=== PATIENT | female | born 1955 | race Caucasian/White ===

== ENCOUNTER → 2019-06-15 | Day surgery (SDC) | payer OTHER ==
[~2019-06-15] MED LIST: CALCIUM 600 +1 EAC8 PO; MAGNESIUM400 M1 PO; PERCOCET 5-3251 EACH PO; RISEDRONATE SO150 MG PO
--- NOTE | ~2019-06-15 | OP ---
[address] [address] OPERATIVE REPORT Name: VEL CELESTIN Room: [facility]#: [id number] Admission: 06/15/19 Attend Phys: Frederick Arteaga II Discharge: Date of : 59 Report #: [id number] THIS REPORT FOR: //name// cc: Sara Rendon Stephanie P. DO ~ THIS REPORT FOR: //name// CC: Frederick Rendon DATE OF SERVICE: 06/15/2019 PREOPERATIVE DIAGNOSIS: Left shoulder rotator cuff tear. POSTOPERATIVE DIAGNOSES: 1. Left shoulder rotator cuff tear. 2. Labral tears. 3. Subacromial impingement. PROCEDURES PERFORMED: 1. Left shoulder arthroscopic surgery with rotator cuff repair. 2. Left shoulder extensive debridement of labral tears. 3. Subacromial decompression. SURGEON: Frederick Arteaga II, DO EXTERIOR INTERIOR SPECIALIST: JOHN Peterson ANESTHESIA: Per operative record. ESTIMATED BLOOD LOSS: Minimal. ANTIBIOTICS: Per operative record. DRAINS: None. COMPLICATIONS: None. CONDITION OF THE PATIENT: Stable to recovery room. DESCRIPTION OF PROCEDURE: The patient was taken to the operative suite and placed supine on the operating table, given appropriate anesthesia. The patient's affected shoulder was sterilely prepped and draped in a modified beach chair position and all bony prominences well padded. Surgery began by posterior portal incision. The arthroscope was advanced in the joint. There was shown to be intact biceps tendon with only minor fraying. There [place] [address] OPERATIVE REPORT Name: VEL CELESTIN Room: [facility].#: [id number] Admission: 06/15/19 Attend Phys: Frederick Arteaga II Discharge: Date of : 59 Report #: [id number] and cartilage debris as well as labral tears to the glenohumeral joint. Establishing an anterior portal with geronimo introduced, an extensive debridement was performed on the superior, inferior as well as anterior and posterior portions of the glenohumeral joint and labrum, removing excess tears, bone and cartilage debris with an extensive debridement being performed. The arthroscope was advanced in the subacromial space, and a subacromial decompression and partial acromioplasty was performed due to significant impingement. The lateral clavicle did not have significant osteoarthritis and was left intact. There was shown to be rotator cuff tear noted to the lateral margin of the supraspinatus measuring approximately 1.5 cm. Establishing a lateral portal, the lateral rotator cuff tear was debrided down to fresh tissue on its free edge. A bone bed was then repaired along the lateral humerus down to bleeding bone. One suture tape was then placed in the proximal aspect of the tear, was then anchored to the lateral humerus in appropriate fashion. This was then overlaid with a medium arthroscopic bioinductive implant with SHAMA tendon anchor secured medially and PEEK bone anchor secured laterally to repair the rotator cuff. This was probed and shown to be intact with excellent repair of rotator cuff and full range of motion of the shoulder without evidence of re-tear. Final images were taken. The shoulder was drained of arthroscopic fluid, closed with 4-0 nylon in simple fashion. Dermabond and sterile dressing applied. Sling was applied. The patient transported to recovery room in stable condition. Counts were correct throughout the procedure. By: [id number] Arteaga II, DO /nt
[2019-06-15 07:06] LABS: HEMATOCRIT 39.8 % (37.0-47.0); HEMOGLOBIN 13.5 gm/dL (12.0-15.0); MCH 31.2 pg (26.0-34.0); MCHC 33.9 g/dL (28.0-37.0); MCV 92.1 fL (80.0-100.0); MPV 10.5 fl. (7.2-11.1); RBC 4.32 mil/uL (4.20-5.00); RDW-CV 13.9 % (10.5-14.5); WBC 7.2 thou/uL (4.0-11.0)
[2019-06-15 07:15] LABS: CALCIUM 8.8 mg/dL (8.5-10.1); POTASSIUM 4.3 mmol/L (3.5-5.1)
[2019-06-15 07:20] LABS: ALBUMIN 3.6 g/dL (3.4-5.0); TOTAL BILIRUBIN 0.4 mg/dL (<0.1-1.0); TOTAL PROTEIN 7.4 g/dL (6.4-8.2)
--- NOTE | 2019-06-15 11:48 | EKG ---
[place] [address] ELECTROCARDIOGRAM REPORT Name: VEL CELESTIN Room: [facility]#: [id number] Admission: 06/15/19 Attend Phys: Frederick Arteaga II Discharge: Date of : 59 Report #: [id number] THIS REPORT FOR: //name// [facility] Test Date: 2019-06-15 Test Time: 08:04:11 Pat Name: VEL CELESTIN Department: Room: Gender: F Customer Field Representative: : 1955 Requested By: Frederick Arteaga Order Number: [id number] Chris MD: Marco Hernandez Measurements Intervals [place] Rate: 59 P: 26 MT: 153 QRS: 37 QRSD: 82 T: 22 QT: 410 QTc: 407 Interpretive Statements Sinus rhythm Consider RVH or posterior infarct No previous ECG available for comparison Electronically Signed On 06-15-2019 11:47:54 [employer] by Marco Hernandez [email or web address] <ELECTRONICALLY SIGNED> By: Marco Hernandez MD, [facility] 06/15/19 [id number] Marco Hernandez MD, FACC /EPI
== END | disposition home or self-care (01) ==
LOC: M.SUR 06:38
PROVIDERS: Orthopaedic Surgery
DX: M75.102 Unspecified rotator cuff tear or rupture of left shoulder, not specified as traumatic (principal); M25.512 Pain in left shoulder; M75.42 Impingement syndrome of left shoulder; M75.32 Calcific tendinitis of left shoulder; S43.492A Other sprain of left shoulder joint, initial encounter; Z98.890 Other specified postprocedural states; Z79.899 Other long term (current) drug therapy; Z90.710 Acquired absence of both cervix and uterus; Z79.82 Long term (current) use of aspirin; X58.XXXA Exposure to other specified factors, initial encounter; Y93.89 Activity, other specified; Y92.89 Other specified places as the place of occurrence of the external cause; Y99.8 Other external cause status; M81.0 Age-related osteoporosis without current pathological fracture